=== PATIENT | female | born 2000 | race Hispanic/Latino ===

== ENCOUNTER 2020-06-18 11:01 | Outpatient (CLI) | payer OTHER ==
[2020-06-18 17:46] LABS: SARS-CoV-2 PCR by NAA Not Detected (NotDetected)
== END 2020-06-18 11:02 | disposition home or self-care (01) ==
LOC: CSHLAB 11:01
PROVIDERS: ATTEND Obstetrics & Gynecology
DX: Z20.822 Contact with and (suspected) exposure to COVID-19 (principal)
CPT/HCPCS: 87635; U0003; U0005

== ENCOUNTER 2020-06-22 01:21 | Inpatient (IN) | payer OTHER ==
[~2020-06-22 01:21] MED LIST: Carboprost 250 MCG/ML AMP IM PRN; Diphenoxylate HCl/Atropine Tablet PO PRN; Docusate 100 MG CAP PO PRN; HYDROcodone/Acetaminophen 5/325 mg Tablet PO PRN; Ibuprofen 800 MG TAB PO PRN; Lidocaine 1% (PF) 30 ML VIAL SC PRN; Methylergonovine 0.2 MG/ML VIAL IM PRN; Misoprostol 200 MCG TAB PR PRN; Ondansetron PF 4 MG/2 ML Vial IVP PRN; Promethazine HCl 25 MG/ML VIAL IM PRN; hydrALAZINE 20 MG/ML VIAL SLOW IVP PRN
[2020-06-22 07:21] VITALS: BMI 30.4
[2020-06-22] MEDS: Lactated Ringer's 1,000 ML IV SCH ×2 (07:26→14:44)
[2020-06-22] MEDS ORDERED: NS w/ Oxytocin 30 units 500 ML IV PRN (07:40)
[2020-06-22] MEDS ORDERED: NS w/ Oxytocin 30 units 500 ML IVPB SCH ×2 (07:45)
[2020-06-22 07:51] LABS: Hemoglobin 13.2 g/dL (12.0-15.5); Mean Corpuscular HGB CONC 34.4 g/dL (32.0-36.0); Mean Corpuscular Hemoglobin 31.3 pg (27.0-33.0); Mean Platelet Volume 9.9 fl (7.4-10.4); Platelet Count 303 10x3/uL (150-450); RBC Distribution Width 14.6 % (11.5-14.5); Red Blood Cell (RBC) Count 4.22 10x6/uL (3.90-5.03); White Blood Cell (WBC) Count 12.8 10x3/uL (3.5-10.5)
[2020-06-22 08:22] LABS: Hep B Surf Ag Non-Reactive S/CO (NonReactive); Syphilis Antibody Nonreactive (Nonreactive); Syphilis Antibody Index 0.03 S/CO (<1.00 Non-Reactive)
[2020-06-22] MEDS: Misoprostol 100 MCG TAB VAG SCH ×3 (08:25→17:27)
[2020-06-22 08:36] LABS: HBSAg Index 0.14 S/CO (0-0.99)
[2020-06-23] MEDS: Lactated Ringer's 1,000 ML IV SCH ×4 (00:16→15:00)
[2020-06-23] MEDS: Misoprostol 100 MCG TAB VAG SCH ×7 (00:16→22:26)
[2020-06-23] MEDS ORDERED: Butorphanol Tartrate 1 MG/ML VIAL ONE (05:34)
[2020-06-23] MEDS ORDERED: Butorphanol Tartrate 1 MG/ML VIAL SLOW IVP PRN (05:36)
[2020-06-23] MEDS ORDERED: Fentanyl 4 mcg/Bup 0.1% Cadd 100 ML ONE (09:46)
[2020-06-23] MEDS ORDERED: ePHEDrine 50 MG/ML VIAL SLOW IVP PRN (10:51)
[2020-06-23] MEDS ORDERED: Promethazine HCl 25 MG/ML VIAL IM PRN ×2 (10:51→18:02)
[2020-06-23] MEDS ORDERED: Acetaminophen 325 MG TAB PO PRN (10:51)
[2020-06-23] MEDS ORDERED: Ondansetron PF 4 MG/2 ML Vial IVP PRN ×2 (10:51→18:02)
[2020-06-23] MEDS ORDERED: Naloxone HCl 0.4 mg/ml Vial IVP PRN ×2 (10:51)
[2020-06-23] MEDS ORDERED: Lactated Ringer's 500 ML IV PRN (10:51)
[2020-06-23] MEDS ORDERED: diphenhydrAMINE 50 MG/ML VIAL IVP PRN (10:51)
[2020-06-23] MEDS ORDERED: Eucerin (Mineral Oil/Petrolatum,White) 30 gm Jar TOP PRN (10:51)
[2020-06-23] MEDS ORDERED: Fentanyl 4 mcg/Bupivacaine 0.1% Cassette 100 ML EPIDURAL SCH (11:00)
[2020-06-23] MEDS ORDERED: Communication Order-Pharmacy FS SCH (11:00)
[2020-06-23] MEDS ORDERED: Misoprostol 200 MCG TAB ONE (15:35)
[2020-06-23] MEDS ORDERED: Methylergonovine 0.2 MG/ML VIAL ONE (15:36)
[2020-06-23] MEDS ORDERED: Carboprost 250 MCG/ML AMP ONE (15:36)
[2020-06-23] MEDS ORDERED: Lanolin Ointment 7 GM TUBE TOP PRN (18:02)
[2020-06-23] MEDS ORDERED: Zolpidem Tartrate 5 MG TAB PO PRN (18:02)
[2020-06-23] MEDS ORDERED: Benzocaine-Menthol 82.5 ML CAN TOP PRN (18:02)
[2020-06-23] MEDS ORDERED: Adacel (T-DAP) 0.5 ML SYRINGE IM ONE (18:02)
[2020-06-23] MEDS ORDERED: HYDROcodone/Acetaminophen 5/325 mg Tablet PO PRN ×2 (18:02)
[2020-06-23] MEDS ORDERED: hydrALAZINE 20 MG/ML VIAL SLOW IVP PRN (18:02)
[2020-06-23] MEDS ORDERED: Varicella virus, LIVE 0.5 ML VIAL SC ONE (18:02)
[2020-06-23] MEDS ORDERED: Milk Of Magnesia 30 ML UDCUP PO PRN (18:02)
[2020-06-23] MEDS ORDERED: Preparation H Ointment 28 GM TUBE PR PRN (18:02)
[2020-06-23] MEDS ORDERED: Measles/Mumps/Rubella 10 MCG/0.5 ML VIAL SC ONE (18:02)
[2020-06-23] MEDS ORDERED: Methylergonovine 0.2 MG/ML VIAL IM PRN (18:02)
[2020-06-23] MEDS ORDERED: diphenhydrAMINE 25 MG CAP PO PRN (18:02)
[2020-06-23] MEDS ORDERED: Bisacodyl 10 MG SUPP PR PRN (18:02)
[2020-06-23] MEDS ORDERED: NS w/ Oxytocin 30 units 500 ML IVPB SCH (18:15)
[2020-06-23] MEDS: Docusate Calcium (SURFAK) 240 MG CAP PO SCH (21:31)
[2020-06-23] MEDS: Ibuprofen 800 MG TAB PO SCH (21:31)
[2020-06-24] MEDS: Ibuprofen 800 MG TAB PO SCH ×3 (05:03→21:34)
[2020-06-24 06:32] LABS: Hemoglobin 12.3 g/dL (12.0-15.5); Mean Corpuscular HGB CONC 33.4 g/dL (32.0-36.0); Mean Corpuscular Hemoglobin 30.8 pg (27.0-33.0); Mean Corpuscular Volume 92.2 fl (81.6-98.3); Mean Platelet Volume 9.8 fl (7.4-10.4); Platelet Count 266 10x3/uL (150-450); RBC Distribution Width 14.6 % (11.5-14.5); Red Blood Cell (RBC) Count 3.99 10x6/uL (3.90-5.03); White Blood Cell (WBC) Count 19.3 10x3/uL (3.5-10.5)
[2020-06-24] MEDS: Ferrous Sulfate 325 MG TAB PO SCH (08:50)
[2020-06-24] MEDS ORDERED: Prenatal Vitamin 1 TAB PO SCH (09:00)
[2020-06-24] MEDS: Docusate Calcium (SURFAK) 240 MG CAP PO SCH ×2 (09:26→21:33)
[2020-06-25] MEDS: Ibuprofen 800 MG TAB PO SCH (06:53)
[2020-06-25 07:44] VITALS: BP 106/75; TEMP 98.5
== END 2020-06-25 12:22 | disposition home or self-care (01) | DRG 807 ==
LOC: CSHLD 01:21 → UNDOADMIN 06:32 → CSHPP 06-23 17:55
PROVIDERS: ADMIT Obstetrics & Gynecology; ATTEND Obstetrics & Gynecology
PROC: 10E0XZZ Delivery of Products of Conception, External Approach (ICD-10-PCS; principal; 2020-06-23)
PROC: 3E0P7VZ Introduction of Hormone into Female Reproductive, Via Natural or Artificial Opening (ICD-10-PCS; 2020-06-23)
PROC: 3E033VJ Introduction of Other Hormone into Peripheral Vein, Percutaneous Approach (ICD-10-PCS; 2020-06-23)
DX: O80 Encounter for full-term uncomplicated delivery (principal); Z37.0 Single live birth; Z3A.39 39 weeks gestation of pregnancy; Z20.822 Contact with and (suspected) exposure to COVID-19
CPT/HCPCS: 51702; 85027; 86780; 86850; 86900; 86901; 87340; J0595; J2590